=== PATIENT | male | born 1935 | race Caucasian/White ===

== ENCOUNTER → 2023-11-02 10:52 | Outpatient (REF) | payer MEDICARE, SELFPAY | LOC: REG 10:52 | PROVIDERS: ATTENDING PHYSICIAN Specialist; FAMILY PHYSICIAN Family Medicine | DX: R97.20 Elevated prostate specific antigen [PSA] (principal) | CPT/HCPCS: 36415; 84153 ==

== ENCOUNTER → 2023-11-16 01:18 | Outpatient (REF) | payer MEDICARE, SELFPAY | LOC: CLAB 01:18 | PROVIDERS: ATTENDING PHYSICIAN Specialist | DX: R97.20 Elevated prostate specific antigen [PSA] (principal) | CPT/HCPCS: 88305; 88344 ==

== ENCOUNTER → 2024-06-11 12:25 | Outpatient (REF) | payer MEDICARE, SELFPAY | LOC: REG 12:25 | PROVIDERS: ATTENDING PHYSICIAN Specialist; FAMILY PHYSICIAN Nurse Practitioner Acute Care | DX: C61 Malignant neoplasm of prostate (principal) | CPT/HCPCS: 36415; 84153 ==

== ENCOUNTER → 2024-07-02 14:24 | Outpatient (REF) | payer MEDICARE, SELFPAY | LOC: MRI 3T 14:24 | PROVIDERS: ATTENDING PHYSICIAN Physician Assistant; FAMILY PHYSICIAN Family Medicine; REFERRING PHYSICIAN Orthopaedic Surgery | DX: M25.511 Pain in right shoulder (principal) | CPT/HCPCS: 72148; 73221 ==

== ENCOUNTER → 2025-01-02 10:36 | Outpatient (REF) | payer MEDICARE, SELFPAY | LOC: REG 10:36 | PROVIDERS: ATTENDING PHYSICIAN Specialist | DX: C61 Malignant neoplasm of prostate (principal) | CPT/HCPCS: 36415; 84153 ==

== ENCOUNTER 2025-02-13 18:09 | Observation (INO) | payer MEDICARE, SELFPAY ==
[2025-02-13] VITALS (11 sets, daily range): BP systolic 121–162; BP diastolic 72–93; PULSE 56; O2SAT 98; BMI 22.8
[2025-02-13 14:34] LABS: Hematocrit 41.2 % (39.0-52.0); Hemoglobin 14.1 g/dL (13.0-18.0); Mean Corp Hgb Conc. 34.2 g/dL (33.0-37.0); Mean Corpuscular Volume 93.2 fL (80.0-94.0); Nucleated Red Blood Cells % 0 % (-); Platelet Count 202 10^3/uL (130-400); Red Cell Dist. Width 13.5 % (11.5-14.5)
[2025-02-13 14:48] LABS: INR 1.10; PT 14.8 Sec (11.4-14.6)
[2025-02-13 14:49] LABS: APTT 24.7 Sec (23.4-35.0)
[2025-02-13 15:08] LABS: Troponin I < 0.012 ng/ml
--- NOTE | 2025-02-13 15:40 | ED.GENMED ---
History of Present Illness
General
Chief Complaint: Dizziness
Source: patient
Exam Limitations: none
Time Seen by Provider: 02/13/25 15:26
Nursing documentation reviewed up to this point in time: agreed with
History of Present Illness
History of Present Illness:
89 yo male with h/o Afib on Eliquis, HLD, IBS, presents with left neck pain and episodes of dizziness. The onset of neck pain occurred on Tuesday while cleaning and moving items around [place] house. The patient describes the neck pain as initially
localized to a specific spot but has since progressed to a point where he is unable to turn his neck to the left due to pain
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 During this episode, he needed to support himself by holding onto objects. He did not
describe this as a spinning sensation typically associated with vertigo. After this episode, he was able to return to bed and fell asleep.
By next morning, the patient felt better and visited , had a general examination but could not determine the cause of the neck pain or dizziness. The neck pain persisted, and further episodes of feeling 'off' prompted a follow-up visit to last
night. It was then suggested he may need further evaluation of his neck arteries for potential vascular issues contributing to dizziness. There are no reports of recent head injury, changes in vision, chest pain, or respiratory issues.
The patient recalls feeling slightly nauseous this a.m but no vomiting. There is no history of recent abdominal pain, diarrhea, constipation, urinary discomfort, or weakness/numbness in arms or legs. He does report a general feeling of being unwell
and 'not himself.' No recent head trauma
Past History
Past History
ED Past Medical History: Arrthythmia and Hypercholesterolemia
ED Past Surgical History: Orthopedic and Other (hernia repair)
Social History
Tobacco: Non-smoker
Alcohol: Occasional
Drug: None
Personal: Single
Living: with family
Employment: Retired
Family History
Family History: Other (Mother with aortic valve replacement)
Review of Systems
Review of Systems
Allergies reviewed?: Yes
All Other Systems: ROS reviewed and negative except as documented in HPI and ROS
Constitutional: Denies fever
Respiratory: Denies trouble breathing
Cardiac: Denies chest pain
ABD/GI: Reports nausea; Denies abdominal pain, vomiting or diarrhea
: Denies dysuria
Musculoskeletal: Reports neck pain (left side); Denies edema
Skin: Reports no symptoms
Neurological: Reports dizzy; Denies headache, weakness or numbness
Phy Exam
Physical Exam
Physical Exam:
GENERAL: No acute distress. A&Ox3.
CONSTITUTIONAL: Afebrile.
EYES: clear, conjunctivae normal
Neck supple, no carotid bruits
ENMT: moist mucus membranes, Pharynx nl
RESPIRATORY: Regular respirations, nonlabored, lungs clear.
CARDIOVASCULAR: Regular rate and rhythm, no murmurs, no rubs.
GI: Soft, nontender, normal BS
MUSCULOSKELETAL: No spinal bony tenderness. Left side neck pain immediately reproducible with palpation of Soft tissues, aggravated with head rotating to left. Moves with ease. Well perfused.
SKIN: Warm, dry, pink
PSYCH: Normal mood and affect. Well kept, interactive and appropriate
NEUROLOGIC: Awake, alert and oriented. Speech clear. Cranial nerves II through XII intact. Bejasc-ac-gyda intact. No focal neurological deficits.
Scores
NIH Stroke Score
Level of Consciousness: 0 - Alert
LOC Questions: 0-Answers both correctly
LOC Commands: 0-Performs both correctly
Best Horizontal Gaze: 0-Normal
Visual Johnson: 0=Normal, no visual loss
Facial Palsy: 0=Normal, symmetrical
Motor - Right Arm: 0=No drift 10 seconds
Motor - Left Arm: 0=No drift 10 seconds
Motor - Right Le-No drift 5 seconds
Motor - Left Le-No drift 5 seconds
Limb Ataxia: 0-Absent
Sensation: 0-Normal
Best Language: 0-No aphasia
Dysarthria: 0-Normal
Extinction and Inattention: 0-No abnormality
NIH Total Score:: 0
Course
Orders/Labs/Results
Orders:
Orders
02/13/25 13:53
EKG [Electrocardiogram (*1)] Urgent
Reason for Study: Vertigo / Dizzy
EKG- Treatment ONCE
02/13/25 14:26
Complete Blood Count/With Diff Urgent
Glycohemoglobin (HgbA1c) Urgent
PT/INR [Prothrombin Time] Urgent
PTT Urgent
Troponin I Urgent
02/13/25 15:39
CT Head W/o Iv Contrast Urgent
Comment:
Reason For Exam: dizziness
02/13/25 15:46
Comprehensive Metabolic Panel Urgent
02/13/25 16:32
Physical Therapy Consult [Pt Eval And Treat] Urgent
Treatment: Vestibular evaluation
Activity Level: As Tolerated
02/13/25 17:53
Admit/Transfer Patient As Directed
Co-Sign Provider:
Level of Care: Observation services
Assign to:: Telemetry
Physician / Group: [email or web address]
Diagnosis: cva
Reason for Telemetry: CVA/TIA
Date to Stop Telemetry: 02/16/25
Time to Stop Telemetry: 11:00
PRN Pain Medication Management As Directed
May give lesser potent ordered pain med per pt: Yes
preference::
Protocol:: Medication orders for pain may be administered in a
manner that supports deferring to patient preference
when the pt is:
- Requesting an ordered lesser potent pain medication.
Least to most potent pain medications are defined
as: acetaminophen < NSAID < tramadol < opioids
(morphine, oxycodone, hydromorphone).
- Requesting a lesser dose of the same medication IF
ORDERED.
- Requesting a less intrusive route of administration
if both routes are prescribed by the provider (PO <
IV).
02/13/25 17:54
Code Status As Directed
Resuscitation Status: Full Code
02/13/25 20:19
Acetaminophen [Tylenol/Feverall] 650 mg RECTAL Q4HPRN PRN
Acetaminophen [Tylenol] 650 mg PO Q4HPRN PRN
Aspirin Chewable [Low Strength Aspirin] 81 mg PO DAILY
Atorvastatin [Lipitor] 40 mg PO QPM
02/13/25 20:19
Case Management Consult ONCE
Case Management Consult: Discharge Planning
Comment: stroke/tia
DIETARY IP CONSULT Routine
Reason for Consult: stroke/TIA
NEUROLOGY CONSULT Urgent
Consulting Provider: Rodriguez Ramey
Was physician already notified: Yes
Client Server Developer Urgent
MA [place] Routine
Comment:
Reason For Exam: stroke/TIA
Recent pill cam endoscopy?: No
MA Neck With Contrast Routine
Comment:
Reason For Exam: stroke/TIA
Recent pill cam endoscopy?: No
MR Brain Without Contrast Routine
Comment:
Reason For Exam: stroke/TIA
Recent pill cam endoscopy?: No
Activity As Directed
Activity Level: As Tolerated
NIH Stroke Scale As Directed
Directions: Per protocol
Comment: every shift and with any change in condition or mental status
Neurological Checks As Directed
Frequency: q4h
Additional Instructions:: q4h x 24h upon admission to the floor, then qshift & with any change in condition
and mental status
Patient Education As Directed
Type: Stroke education packet
Comment: provide to patient and family
Pneumatic Compression Sleeves As Directed
Type: Thigh high
Vital Signs As Directed
Frequency: Per unit guidelines
Ot Eval And Treat Routine
Pt Eval And Treat Routine
Activity Level: As Tolerated
Speech Therapy Eval & Treat Routine
DX Deep Vein Thrombosis Video Routine
02/14/25 06:00
Cardiovascular Evaluation IN AM
02/16/25 11:00
DC Protocol for Telemetry ONCE
Abnormal Lab Results
02/13/25 02/13/25
14:26 15:46
RBC 4.42 L 10^6/uL
(4.70-6.10)
MCH 31.9 H pg
(27.0-31.0)
Absolute Monos (auto) 0.8 H 10^3/uL
(0.1-0.6)
Neutrophils % 38.0 L %
(42.2-75.2)
Monocytes % 16.8 H %
(1.7-9.3)
PT 14.8 H Sec
(11.4-14.6)
Carbon Dioxide 32 H mmol/L
(22-30)
02/13/25 14:26
02/13/25 15:46
Vital Signs
Initial and Last Documented VS:
Initial Vital Signs
Temp Pulse Resp BP Pulse Ox
98.5 F 73 16 162/93 99
02/13/25 13:56 02/13/25 13:56 02/13/25 13:56 02/13/25 13:56 02/13/25 13:56
Last Documented Vital Signs
Temp Pulse Resp BP Pulse Ox
98.0 F 56 16 128/72 99
02/13/25 23:07 02/13/25 23:07 02/13/25 23:07 02/13/25 23:07 02/13/25 23:07
MDM/Problems Addressed
Differential Diagnosis Includes:
The Differential Diagnosis includes, in no particular order and is not limited to:
1. Cervical spondylosis
2. Carotid artery stenosis
3. Benign paroxysmal positional vertigo
4. Vestibular neuronitis
5. Labyrinthitis
6. Stroke or transient ischemic attack
7. Medication side effects (e.g., beta-blockers)
8. Dehydration
9. Orthostatic hypotension
10. Intracranial hemorrhage or other central nervous system pathologies
MDM/Problems Addressed:
89 yo male with h/o Afib on Eliquis, HLD, IBS, presents with left neck pain and episodes of dizziness. The onset of neck pain occurred on Tuesday while cleaning and moving items around a beach house. The patient describes the neck pain as initially
localized to a specific spot but has since progressed to a point where he is unable to turn his neck to the left due to pain
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 During this episode, he needed to support himself by holding onto objects. He did not
describe this as a spinning sensation typically associated with vertigo. After this episode, he was able to return to bed and fell asleep.
By next morning, the patient felt better and visited , had a general examination but could not determine the cause of the neck pain or dizziness. The neck pain persisted, and further episodes of feeling 'off' prompted a follow-up visit to last
night. It was then suggested he may need further evaluation of his neck arteries for potential vascular issues contributing to dizziness. There are no reports of recent head injury, changes in vision, chest pain, or respiratory issues.
The patient recalls feeling slightly nauseous this a.m but no vomiting. There is no history of recent abdominal pain, diarrhea, constipation, urinary discomfort, or weakness/numbness in arms or legs. He does report a general feeling of being unwell
and 'not himself.' No recent head trauma
EKG and SR
Plan:
- Order a computed tomography scan of the head to rule out intracranial bleeding or other abnormalities.
- Perform basic blood work to assess overall health status.
- Arrange for physical therapy consultation to evaluate and manage possible benign positional vertigo.
- The healthcare team will determine further treatment and observation based on computed tomography scan results.
CBC, CMP with no clinically significant abnormality.
Troponin WNL
4:30 PM:
Head CT showing nothing acute
Awaiting physical therapy vestibular evaluation
5:30 PM:
PT eval negative for BPPV, no nystagmus, ambulating with steady gait
Plan: Admit: MRI, neuro evaluation to rule out posterior stroke
Pt ok with plan
Hospitalist notified of admission
Chronic conditions affecting care: HTN
*Pulse Oximetry
SaO2: 97
Oxygen Mode of Delivery: Room air
Patient hypoxic: not evaluated
*EKG
EKG Intrepretation Date: 02/13/25
Interpretation: normal
Heart Rate: 66
Rate: normal
Rhythm: sinus
Burdett: normal axis
Interval: normal interval
QRS Pattern: normal QRS
Ischemia: no ischemia
*Critical Care Note
Total Time (30-74mins, 75-104mins- exclusive of procedures): Not Applicable
ED Attending Note
-
Portions of this chart may have been created with voice recognition software.� Occasional wrong word or��sound alike� substitutions may have occurred due to the inherent limitations of voice recognition software.
Discharge Plan
Departure
Patient Disposition: Admit
Date of Disposition: 02/13/25
Time of Disposition: 17:35
Admit to: Med/Surg
Presentation/result/management discussed w/ accepting MD/DO: Hospitalist
Condition: Fair
Discharge Problem:
Dizziness
Interventions
Interventions:
*Risk Screen - Suicide Last Done: 02/13/25 13:56
*General Assessment Last Done: 02/13/25 13:56
*Neglect/Abuse Screening Last Done: 02/13/25 13:56
*ED- Fall Risk Assessment Last Done: 02/13/25 13:56
*ED COVID-19 Vaccine History Last Done: 02/13/25 20:49
*Nursing Disposition Last Done: 02/13/25 20:15
ED- Neurological Assessment Last Done: 02/13/25 14:30
ED- Cardiac Assessment Last Done: 02/13/25 14:30
ED Swallowing Screen Last Done: 02/13/25 17:00
Discharge Date and Time
Discharge Date/Time: 02/13/25 20:15
[2025-02-13 16:13] LABS: ALT (SGPT) 18 U/L (0-50); AST (SGOT) 22 U/L (17-59); Albumin 3.9 g/dl (3.5-5.0); Alkaline Phosphatase 56 U/L (38-126); Blood Urea Nitrogen 16 mg/dl (9-20); Calcium 9.2 mg/dl (8.4-10.2); Carbon Dioxide 32 mmol/L (22-30); Chloride 106 mmol/L (98-107); Glucose 95 mg/dl (70-99); Potassium 3.9 mmol/L (3.5-5.1); Sodium 138 mmol/L (135-145); Total Protein 6.3 g/dl (6.3-8.2); eGFR > 60.00
--- NOTE | 2025-02-13 17:35 | HPS.HSE ---
Family Physician
-
Family Physician: Petrona Conrad MD
Chief Complaint
-
neck pain/dizzy
History of Present Illness
89 yo male with h/o Afib on Eliquis, HLD, IBS, presents with left neck pain and episodes of dizziness. The onset of neck pain occurred on Tuesday while cleaning and moving items around a beach house. The patient describes the neck pain as initially
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
getting out of bed to use the bathroom. denied any spinning sensation. he went to urgent care following day and he was evaluated by PCP today who recommended Hospital evaluation. Patient denied any headache, dizzy, fever, chills, chest pain, short
of breath. Patient denied any abdominal pain, nausea, vomiting or diarrhea. Patient denied dysuria hematuria.
Head CT with no acute findings.Admitting for further management
Medical History
Past Medical History
Past Medical History: Reports Other
Additional Past Medical History:
Paroxysmal A-fib
Insomnia anxiety
Hyperlipidemia
osteoarthritis
Prostate cancer
Zcaen-Zelxozjyz-Wzdns syndrome
Hernia
Anxiety
Hemangioma of the liver
Cerebral hemorrhage
IBS
Vertigo
Liver mass
Past Surgical History: Reports Other
Additional Past Surgical History:
Left inguinal hernia repair
Toe surgery
Liver mass removed
Cardiac ablation
Cataract surgery
Social History
Tobacco: Non-smoker
Alcohol: Occasional
Drug: None
Personal: Single
Living: With Roomate
Family History
Family History: Not pertinent
Allergies / Home Medications
Allergies reflects when Allergies were last updated in [facility].
Home Medications with original date entered in [facility]
Allergy/Medication List:
Allergies
Allergy/AdvReac Type Severity Reaction Status Date / Time
No Known Allergies Allergy Verified 07/05/22 06:22
Home Medications
atorvastatin 10 mg tablet 10 mg PO HS 10/20/13
meclizine 25 mg tablet 25 mg PO Q8HPRN PRN nausea or vertigo #21 tabs 12/07/13
acyclovir 200 mg capsule 200 mg PO PRN PRN herpes outbreak 03/19/21
apixaban 5 mg tablet (Eliquis) 5 mg PO BID 03/19/21
metoprolol succinate 25 mg tablet,extended release 24 hr (Toprol XL) 25 mg PO DAILY 03/19/21
omega 5-ulh-ujy-fish oil 900 mg-1,400 mg capsule,delayed release (Fish Oil) 1 cap PO DAILY 03/19/21
acetaminophen 300 mg-codeine 30 mg tablet 1 tab PO Q6H PRN PAIN 06/30/22
calcium 500 mg tablet 500 mg PO DAILY 06/30/22
cholecalciferol (vitamin D3) 25 mcg (1,000 unit) tablet (Vitamin D3) 25 mcg PO DAILY 06/30/22
coenzyme W03-tncnhjs E 100 mg-100 unit capsule 1 cap PO DAILY 06/30/22
multivitamin 1 tab PO DAILY 06/30/22
vit C 250 mg-vit E 90 mg-zinc 40 mg-copper 1 fu-ivdoqi-yrrjqb capsule (PreserVision AREDS-2) 1 tab PO BID 06/30/22
zinc 50 mg capsule 50 mg PO DAILY 06/30/22
oxycodone 5 mg tablet 5 - 10 mg (1 - 2 x 5 mg) PO Q4HPRN PRN moderate to severe pain #10 tabs 07/05/22
Review of Systems
-
Constitutional: Reports No Symptoms
EENT: Reports No Symptoms
Respiratory: Reports No Symptoms
Cardiac: Reports No Symptoms
Abdomen/GI: Reports No Symptoms
: Reports No Symptoms
Musculoskeletal: Reports No Symptoms
Skin: Reports No Symptoms
Neurological: Reports Other (Off balance)
Endocrine: Reports No Symptoms
Hematologic/Lymphatic: Reports No Symptoms
Psych: Reports No Symptoms
Physical Exam
Vital Signs
Vital Signs
Temp Pulse Resp BP Pulse Ox
98.5 F 53 20 148/82 98
02/13/25 13:56 02/13/25 17:00 02/13/25 17:00 02/13/25 17:00 02/13/25 17:00
Physical Exam
General: Well Developed, Well Nourished and No Apparent Distress
HEENT: NormoCephalic, Moist mucous membranes and Atraumatic
Respiratory: Clear
Cardiac: S1/S2 and Regular Rhythm; No Murmur or Rub
GI: Soft, Non Tender, Non Distended and Normal Bowel Sounds; No Organomegaly
Rectal: Deferred by Provider
Musculoskeletal: No Clubbing, No Cyanosis and No Edema
Skin: No Rash
Neuro: AO x 3 and Nonfocal/grossly intact
Psych: Calm
Laboratory Results
-
02/13/25 14:26
02/13/25 15:46
Laboratory Results
PT 14.8 Sec (11.4-14.6) H 02/13/25 14:26
INR 1.10 02/13/25 14:26
APTT 24.7 Sec (23.4-35.0) 02/13/25 14:26
Total Bilirubin 0.6 mg/dl (0.2-1.3) 02/13/25 15:46
AST 22 U/L (17-59) 02/13/25 15:46
ALT 18 U/L (0-50) 02/13/25 15:46
Alkaline Phosphatase 56 U/L (38-126) 02/13/25 15:46
Troponin I < 0.012 ng/ml 02/13/25 14:26
Data Reviewed
-
CT Scan: Report Reviewed by me
Lab Data: Labs Reviewed by me
Impression/Plan
-
#Dizzy/imbalance concern for CVA
- Head CT negative for acute finding
- PT eval negative for BPPV
- Obtain MRI
- Aspirin, statin continued
- Obtain A1c, lipid profile
- PT/OT consulted
- Neurology consulted
#Paroxysmal A-fib
- Eliquis and metoprolol continued
-EKg with NSR
#DVT prophylaxis on Eliquis
#CODE STATUS
- Full code
--- NOTE | 2025-02-13 18:27 | W.PN.UPDATE ---
Update Note
Progress Note Update
This note serves as an addendum to the H&P by signal manager JERI Emily HSU
HPI
89M HX Afib on Eliquis, HLD, IBS seen at ER
- pw left neck pain and episodes of dizziness
- onset of neck pain occurred on Tuesday while cleaning and moving items around a beach house.
- neck pain has since progressed to a point where he is unable to turn his neck to the left due to pain.
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
- denied any spinning sensation
- seen at [facility] he was evaluated by PCP today who recommended Hospital evaluation.
ROS
- denied any headache, dizzy, fever, chills, chest pain, short of breath.
- denied any abdominal pain, nausea, vomiting or diarrhea.
- denied dysuria hematuria.
Head CT with no acute findings
Vital Signs
Temp Pulse Resp BP Pulse Ox
98.5 F 53 20 148/82 98
02/13/25 13:56 02/13/25 17:00 02/13/25 17:00 02/13/25 17:00 02/13/25 17:00
PE
Gen: NAD
HEENT: Nl speech, No nystagmus
Neck: no cervical tenderness
Lungs: CTA
Cor: RRR S1 S2
RIBBON TIER: grossly non focal exam
MS: no edema
Per ER NIH Total Score:: 0
Abnormal Lab Results
02/13/25 02/13/25
14:26 15:46
RBC 4.42 L
MCH 31.9 H
Absolute Monos (auto) 0.8 H
Neutrophils % 38.0 L
Monocytes % 16.8 H
PT 14.8 H
Carbon Dioxide 32 H
EKG
NORMAL SINUS RHYTHM
CONSIDER LATERAL INFARCT (CITED ON OR BEFORE 20-MAY-2005)
ABNORMAL ECG
WHEN COMPARED WITH ECG OF 20-MAR-2021 05:42,
QUESTIONABLE CHANGE IN INITIAL FORCES OF ANTERIOR LEADS
QT HAS SHORTENED
Confirmed by MD RODERICK, JUAN M Bang ([id number]) on 02/13/2025 2:22:48 PM
HCT
No acute intracranial abnormality noted.
Last hospitalist admission:
ASSESSMENT & PLAN
Pending Rx reconciliation
Unilateral Lt Neck pain
- Cervical neuralgia or radiculopathy or MS spasm
- suspect MS origin
- add muscle relaxant PRN Flexeril
- await Neuro evaluation
Dizzy/imbalance evaluating for for CVA
- Head CT negative for acute finding
- PT eval negative for BPPV
- Obtain Brain MRI and MRA of H & N
- Aspirin, statin continued
- Obtain A1c, lipid profile
- PT/OT consulted
- Neurology consulted
In NSR
HX Paroxysmal AF
- Eliquis and metoprolol continued
DVT prophylaxis on Eliquis
Full code
OBS TLM
[2025-02-13] MEDS: FLEXERIL 5 MG PO (20:46)
[2025-02-13] MEDS: ELIQUIS 5 MG PO (20:46)
[2025-02-13] MEDS: LOW STRENGTH ASPIRIN 81 MG PO (20:46)
[2025-02-13] MEDS: LIPITOR 40 MG PO (20:46)
[2025-02-13] MEDS: METAMUCIL, KONSYL 1 PACKET PO (20:46)
[2025-02-14] VITALS (7 sets, daily range): BP systolic 114–149; BP diastolic 71–88; PULSE 60–72; O2SAT 98
[2025-02-14 07:59] LABS: HDL Cholesterol 46 mg/dl; LDL Cholesterol, Calculated 76 mg/dl; Very Low Density Lipoprotein 26 mg/dl (0-30)
[2025-02-14] MEDS: LOW STRENGTH ASPIRIN 81 MG PO (08:26)
[2025-02-14] MEDS: ELIQUIS 5 MG PO ×2 (08:26→20:06)
[2025-02-14] MEDS: TOPROL XL PO (08:26)
--- NOTE | 2025-02-14 09:16 | CON.NEURO4 ---
Addendum entered and electronically signed by Rodriguez Ramey MD 02/14/25 12:23:
Studies reviewed.
I have personally examined the patient. I reviewed and agree with the [employer] ACCESS DEVELOPER's Note.
My addenda:
Awake, alert, interactive. No acute distress.
Speech intact.
Follows 2-step requests w/o difficulty. No tremor.
Extra-ocular movements grossly intact.
Facial movements full and symmetric. Hearing intact to normal conversational volume.
Normal UE movements bilaterally.
Neck: full ROM.
Chest: no dyspnea
Heart: no JVD
Ext: (-) Clubbing, (-) Cyanosis, (-) Edema
IMPRESSIONS/RECOMMENDATIONS:
Abrupt onset of neck pain on the left and dizziness. Differential diagnosis includes orthostatic hypotension, vertebral artery dissection although this is unlikely based on the intermittent nature of the patient's neck discomfort as well as absence
of centrally associated findings on examination. There is the possibility of stroke although this is less likely
Check CT angiogram of head and neck to ensure no dissection
Check orthostatic blood pressures
Continue apixaban
Would avoid the addition of antiplatelet agents to the patient's routine apixaban from a neurological perspective
Physical therapy evaluations and treatment
Increase atorvastatin from 20 to 40 mg due to LDL greater than 70
D/W patient / family / nursing
All questions answered.
Will continue to follow pending results.
Original Note:
Documented by User: Ute Mueller NP 02/14/25 11:48
Consultation - Neurology 4
-
CONSULTING PHYSICIAN: Rodriguez Ramey MD
REFERRING PHYSICIAN: Hospitalists/DEVIN Rosa
DICTATED BY: DEVIN Guerrero
DATE/TIME OF REQUEST: 02/13/25
DATE/TIME OF CONSULTATION: 02/14/25
Reason for Consultation: Dizziness, neck pain
History of Present Illness:
This is an 89-year-old right-handed male who has presented to the hospital on 02/13/25 with report left neck pain and dizziness. Patient reports cleaning and moving boxes 6 days ago, that night he notes he developed some left neck discomfort. This
has persisted, but it only painful when he turns his head to the left. Then three days ago on 02/11/25 at 0300, he got out of bed to use the bathroom and reports being unsteady on his feet. He had to reach for furniture to make it back to bed. The
following day (02/12/25), he notes that his left neck pain persisted and he continued to have intermittent times of feeling 'unsteady' lasting about 2-5 minutes. He went to urgent care for evaluation on 02/13/25, who referred him to the ER.
Today (02/14/25), patient notes that his unsteadiness is still occurring intermittently when he is up doing things. His left neck discomfort still occurs when he turns his head to the left. He denies any vision changes, headache, speech/swallowing
difficulty, numbness, and weakness. 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 He is taking apixaban for Afib and denies missing any doses. He reports a history of dizziness in 2013 that felt different that his
current dizziness. He was working out and then proceeded not to feel right and was found to have a small right parietal SAH, he was transferred to [facility] at that time, he denies needing surgical intervention. Later that
year, he presented to the ER with dizziness and was found to have BPPV, he does not recall this.
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
Surgical History: Cardiac ablation, mass removed from liver, b/l inguinal hernia repair, b/l cataract removal
Family History: Reviewed and noncontributory.
Social History: 2 glasses of wine daily. Denies tobacco and illicit drug use.
Allergies: No known allergies.
Home Medications: See below.
Review of Symptoms:
Patient denies any fever, headache, chest pain, shortness of breath, GI or symptoms.
�Per the HPI.�All systems are reviewed negative except above.
Physical Exam:
The patient is afebrile, abdomen is nondistended, breathing is unlabored, skin is warm and dry, no edema.
NIH Stroke Scale:
I performed the NIH stroke scale on the patient on 02/14/25 at 0920. The patient scored 0 points on the NIH stroke scale assessment, which were assigned as follows: See below.
Neurologic Examination:
The patient is awake, alert and oriented x 3. He is able to follow commands and answer questions appropriately. There is no aphasia or dysarthria. On cranial nerve assessment, pupils are pinpoint bilateral, round and reactive to light and
accommodation. Visual johnson are full. Extraocular movements are intact. No nystagmus. Facial sensations are intact and bilaterally symmetrical, there is no facial asymmetry. Hearing is reduced on the left to finger rub. Tongue palate and uvula are
midline. Sternocleidomastoid strengths are full bilaterally. Motor strengths are 5/5 bilateral upper and lower extremities on medical research [place] scale. There is no drift or involuntary movement noted. Deep tendon reflexes are 2+ bilateral
upper, 3+ bilateral patellar, and 2+ bilateral Achilles extremities and Babinski is absent bilaterally. There was no extinction noted on double simultaneous stimulation. Coordination is intact by finger to nose bilaterally. Romberg mildly positive.
+Head impulse test bilaterally.
Lab Results: See below.
Neuro Imaging:
1. CT Head 02/13/25: No acute intracranial abnormality noted. There is a minimal hyperdensity along the right paramedian parietal lobe (series 201 image 18), unchanged from prior likely sequela of prior hemorrhage.
2. CTA head/neck 02/14/25: No significant stenosis in the arterial structures of the head/neck. No acute CT findings in the head or neck. Moderate cerebral atrophy. 1.2 cm region of tree-in-bud opacities in the posterior right upper lobe. These are
related to small airway disease.
Differentials for the patient's presentation include:
1. Orthostasis and BPPV likely contributing to patient's symptoms.
2. Small stroke possible but less likely.
3. CTA head/neck negative for structural intracranial vessel abnormality.
Patient has the following risk factors for their symptoms: HTN, HLD, Afib, lifting boxes, age
IV Tenecteplase/IAT candidacy: Not a candidate due to outside of time window.
Recommendations:
-MRI Brain pending.
-Continue home apixaban.
-PT evaluations.
-LDL goal <70. LDL is 76. Home atorvastatin increased from 20mg to 40mg daily.
-Goal normoglycemia, hbA1c is 5.6.
-NIHSS and neurological checks per unit guidelines.
-Provide patient with a stroke education packet.
Discussed patient care with: Dr. Ramey, the patient
Vital Signs and Labs
-
Vital Signs and Labs:
Vital Signs
Temp Pulse Resp BP Pulse Ox
97.9 F 58 16 132/78 98
02/14/25 08:00 02/14/25 08:00 02/14/25 08:00 02/14/25 08:00 02/14/25 08:00
Lab Results
02/13/25 14:26
02/13/25 15:46
PT 14.8 Sec (11.4-14.6) H 02/13/25 14:26
INR 1.10 02/13/25 14:26
APTT 24.7 Sec (23.4-35.0) 02/13/25 14:26
Sodium 138 mmol/L (135-145) 02/13/25 15:46
Potassium 3.9 mmol/L (3.5-5.1) 02/13/25 15:46
BUN 16 mg/dl (9-20) 02/13/25 15:46
Glucose 95 mg/dl (70-99) 02/13/25 15:46
Calcium 9.2 mg/dl (8.4-10.2) 02/13/25 15:46
LDL Cholesterol, Calc 76 mg/dl 02/14/25 06:44
Medications
-
Active Medications
Generic Name Dose Route Start Last Admin
Trade Name Freq PRN Reason Stop Dose Admin
Acetaminophen 650 mg 02/13/25 20:19
Acetaminophen 650 Mg Rectal Suppository RECTAL 03/13/25 20:18
Q4HPRN PRN
DUDLEY, mild pain, or temp >100.4F
Acetaminophen 650 mg 02/13/25 20:19
Acetaminophen 325 Mg Tablet PO 03/13/25 20:18
Q4HPRN PRN
DUDLEY, mild pain, or temp >100.4F
Apixaban 5 mg 02/13/25 20:19 02/14/25 08:26
Apixaban (Eliquis) 5 Mg Tablet PO 03/13/25 20:18 5 mg
BID JACKELYN Administration
Aspirin 81 mg 02/13/25 20:19 02/14/25 08:26
Aspirin 81 Mg Chewable Tablet PO 03/13/25 20:18 81 mg
DAILY JACKELYN Administration
Atorvastatin Calcium 40 mg 02/13/25 20:19 02/13/25 20:46
Atorvastatin (Lipitor) 40 Mg Tablet PO 03/13/25 20:18 40 mg
QPM JACKELYN Administration
Cyclobenzaprine HCl 5 mg 02/13/25 20:19 02/13/25 20:46
Cyclobenzaprine 10 Mg Tablet PO 03/13/25 20:18 5 mg
Q8HPRN PRN Administration
neck pain
Metoprolol Succinate 25 mg 02/14/25 08:00 02/14/25 08:26
Metoprolol 25 Mg Extended Release Tablet PO 03/14/25 07:59 Not Given
DAILY JACKELYN
Psyllium Hydrophilic Mucilloid 1 packet 02/13/25 21:00 02/13/25 20:46
Psyllium Packet PO 03/13/25 20:59 1 packet
QPM JACKELYN Administration
Sodium Chloride 0 flush 02/13/25 21:00
Sodium Chloride 0.9% (Flush) Syringe IV 03/13/25 20:59
PER PROTOCOL JACKELYN
Home Medications
�Medication �Instructions �Recorded
CoQ-10 50 mg PO DAILY 02/13/25
Fish Oil 1 cap PO DAILY 02/13/25
Metamucil 1 tsp PO QPM 02/13/25
acetaminophen 500 mg tablet 1,000 mg PO DAILYPRN PRN mild pain 02/13/25
(Tylenol Extra Strength)
apixaban 5 mg tablet (Eliquis) 5 mg PO BID 02/13/25
atorvastatin 20 mg tablet 20 mg PO HS 02/13/25
metoprolol succinate 25 mg 25 mg PO DAILY 02/13/25
tablet,extended release 24 hr
vit C 250 mg-vit E 90 mg-zinc 40 1 cap PO BID 02/13/25
mg-copper 1 [id number]
capsule (PreserVision AREDS-2)
zinc 1 tab PO DAILY 02/13/25
NIH Stroke Score
Subsequent NIH Scale
Date of Subsequent NIH Scale: 02/14/25
Time of Subsequent NIH Scale: 09:20
NIH Stroke Score
Level of Consciousness: 0 - Alert
LOC Questions: 0-Answers both correctly
LOC Commands: 0-Performs both correctly
Best Horizontal Gaze: 0-Normal
Visual Johnson: 0=Normal, no visual loss
Facial Palsy: 0=Normal, symmetrical
Motor - Right Arm: 0=No drift 10 seconds
Motor - Left Arm: 0=No drift 10 seconds
Motor - Right Le-No drift 5 seconds
Motor - Left Le-No drift 5 seconds
Limb Ataxia: 0-Absent
Sensation: 0-Normal
Best Language: 0-No aphasia
Dysarthria: 0-Normal
Extinction and Inattention: 0-No abnormality
NIH Total Score:: 0
Modified Mclean (mRS) Score
Modified Mclean Scale (mRS): No significant disability. Able to carry out usual activities.
Score: 1

Documented by User: Rodriguez Ramey MD 02/14/25 12:14
NIH Stroke Score
NIH Stroke Score
NIH Total Score:: 0
Modified Buddy (mRS) Score
Score: 1
[2025-02-14 10:04] LABS: Glycohemoglobin (HgbA1c) 5.6 % (4.0-5.6)
[2025-02-14 11:18] LABS: Folate 14.5 ng/ml (2.76-20); Vitamin B12 350 pg/ml (239-931)
--- NOTE | 2025-02-14 11:20 | W.PN.HOSP.TC ---
Today's Communication/Plan
-
awaiting CTA anD MRI
follow up formal Neurology consult
follow up PT Eval
Assessment / Plan
Assessment / Plan
HCT
No acute intracranial abnormality noted.
ASSESSMENT & PLAN
Unilateral Lt Neck pain
- Cervical neuralgia or radiculopathy or MS spasm
- suspect MS origin
- pain largely resolved this morning
Dizzy/imbalance evaluating for for CVA
- Head CT negative for acute finding
- PT eval negative for BPPV
- Obtain Brain MRI, CTA Head/Neck pending
- Aspirin, statin continued
- Obtain A1c, lipid profile
- PT/OT consulted
- Neurology consulted
In NSR
HX Paroxysmal AF
- Eliquis and metoprolol continued
DVT prophylaxis on Eliquis
Full code
OBS TLM
Anticipated Discharge: Within 24 hours
Subjective/Interval History
-
Date of Service: February 14, 2025
he remains dizzy when looking to right side
he was also dizzy when standing up earlier
Objective Data
-
Vital Signs:
Vital Signs
Temp Pulse Resp BP Pulse Ox
97.9 F 58 16 132/78 98
02/14/25 08:00 02/14/25 08:00 02/14/25 08:00 02/14/25 08:00 02/14/25 08:00
I&O
02/13/25 02/14/25 02/15/25
06:59 06:59 06:59
Intake Total 480 / 480
Output Total 300 / 300
Balance 180 / 180
Review of Systems
-
History Source: Patient
All other systems: Reviewed and negative
Physical Exam
-
General: No Apparent Distress
HEENT: PERRLA and Other (no nystagmus )
Respiratory: Clear to Auscultation; Negative Wheezes
Cardiac: Regular Rhythm and S1/S2
GI: Soft and Nontender
Musculoskeletal: No Edema
Skin: Warm and Dry; Negative Rash
Psych: Calm
Data Reviewed
-
Diagnostic Radiology: Report Reviewed by me
Labs: Labs Reviewed by me
--- NOTE | 2025-02-14 12:23 | PTOTSP ---
pt currently requires supervision to no assistance to complete simple ADLs, functional transfers, ambulation. pt demonstrates no overt deficits, no acute OT needs. will sign off.
--- NOTE | 2025-02-14 16:20 | CM ---
Alert awake oriented patient who lives with his friend Brad who lives in a 2 story home with 2 step to enter and 8 steps to bed and bathroom. He is independent in driving and in all activities of daily living.He was offered VN he declined need.No
adaptive devices.WARNER letter reviewed signed on chart.
No VN hx / No SNF history
Pharmacy [facility]
PCP DR Conrad
PLAN Home Declined VN
[2025-02-14] MEDS: METAMUCIL, KONSYL 1 PACKET PO (17:47)
[2025-02-14] MEDS: LIDOCAINE 4% PATCH 1 PATCH TOPICAL (17:47)
[2025-02-14] MEDS: LIPITOR 40 MG PO (17:47)
[2025-02-14] MEDS: REMOVE LIDOCAINE PATCH 1 PATCH REMOVE (20:02)
[2025-02-14] MEDS: TYLENOL 650 MG PO (20:06)
[2025-02-15 03:08] VITALS: BP 133/76
--- NOTE | 2025-02-15 07:00 | W.PN.HOSP.TC ---
Today's Communication/Plan
-
discharge
Assessment / Plan
Assessment / Plan
Physical Exam
General: No acute distress, appears comfortable at this time
HEENT: NormoCephalic, Moist mucous membranes and Atraumatic
Respiratory: Clear
Cardiac: S1/S2 and Regular Rhythm; No Murmur or Rub
GI: Soft, Non Tender, Non Distended and Normal Bowel Sounds; No Organomegaly
Musculoskeletal: No Clubbing, No Cyanosis and No Edema, left sided neck tenderness/stiffness
Skin: No Rash
Neuro: AOx3 Conversant coherent
Psych: Calm
89M afib Eliquis HLD IBS p/w neck pain likely musculoskeletal etiology and associate dizziness symptomatic orthostatic hypotension.
Unilateral Lt Neck pain
- Cervical neuralgia or radiculopathy or MS spasm
- Likely musculoskeletal origin
- pain largely improved
-cont bengay-like cream
Dizzy/imbalance evaluated for possible CVA, ruled out
symptomatic orthostatic hypotension
- Head CT negative for acute finding
- PT eval negative for BPPV
- Brain MRI, CTA Head/Neck neg for acute abn's
- Aspirin, statin continued
- A1c 5.6 non-diabetic, lipid profile reviewed
- PT/OT eval appreciated outpt therapy recommended (scripts provided to facilitate)
- Neurology consult appreciated home atorvastatin increased to 40 mg
In NSR
HX Paroxysmal AF
- Eliquis and metoprolol continued
DVT prophylaxis on Eliquis
Full code
Medically stable for discharge home with outpatient follow up recommendations.
Total Time Preparing Discharge ___40____ minutes including examination of the patient, summary of the hospital stay, instructions for continuing care to all relevant caregivers; and preparation of discharge records, prescriptions, and referral
forms if necessary.
Anticipated Discharge: Today
Subjective/Interval History
-
Date of Service: February 15, 2025
neck pain continues to improve. Dizziness on standing remains present but improving. Ambulatory without need for assist device.
Objective Data
-
Vital Signs:
Vital Signs
Temp Pulse Resp BP Pulse Ox
98.0 F 59 16 133/76 99
02/15/25 03:08 02/15/25 03:08 02/15/25 03:08 02/15/25 03:08 02/15/25 03:08
I&O
02/14/25 02/15/25 02/16/25
06:59 06:59 06:59
Intake Total 480 / 480 660 / 660
Output Total 300 / 300 1200 / 1200
Balance 180 / 180 -540 / -540
[2025-02-15 07:30] VITALS: BP 131/97; BP 156/92; BP 167/94; PULSE 71; PULSE 84; PULSE 86
[2025-02-15] MEDS: ELIQUIS 5 MG PO (08:41)
[2025-02-15] MEDS: TOPROL XL 25 MG PO (08:41)
[2025-02-15] MEDS: LIDOCAINE 4% PATCH TOPICAL (08:43)
[2025-02-15 11:18] VITALS: BP 150/84
[2025-02-15] MEDS: BenGay-Like 1 APPLIC TOPICAL (14:20)
[2025-02-15 15:47] VITALS: BP 139/87
--- NOTE | 2025-02-15 16:00 | W.DCSUMMARY ---
Discharge Summary
Discharge Data
Date of Admission: 02/13/25
Date of Discharge: 02/15/25
-
Pending Results: No
Hospital Course
89M afib Alejandraquoli HLD IBS p/w neck pain likely musculoskeletal etiology and associate dizziness symptomatic orthostatic hypotension. Unilateral Lt Neck pain. Cervical neuralgia or radiculopathy or MS spasm, likely musculoskeletal origin. Pain
largely improved with conservative measures, bengay-like cream. Dizzy/imbalance evaluated for possible CVA, ruled out, symptomatic orthostatic hypotension. Head CT negative for acute finding. PT eval negative for BPPV. Brain MRI, CTA Head/Neck
neg for acute abn's. Aspirin, statin continued. A1c 5.6 non-diabetic, lipid profile reviewed. PT/OT eval appreciated outpt therapy recommended (scripts provided to facilitate). Neurology consult appreciated home atorvastatin increased to 40 mg.
Medically stable, patient was discharged home with outpatient follow up recommendations.
Discharge Plan
-
Patient Disposition: Home (Routine Discharge)
Discharge Diagnosis/Procedures: Left Sided Neck Pain likely musculoskeletal etiology
Symptomatic Orthostatic Hypotension
Condition: Fair
Diet: Regular
Activity: As tolerated
Driving Restrictions: As prior to admission
Bathing Restrictions: None
Other Services: PT and OT
Activity Restrictions/Additional Instructions:
Follow up with primary care provider in 1 week of discharge, orthopedic assessment specialist in 2-4 weeks of discharge, and neurology in 1 month of discharge.
Keep a daily log of your pressures at home to review with your primary care provider, in follow up, for further blood pressure evaluation/management.
Atorvastatin has been increased to 40 mg as per neurology recommendations for greater stroke risk reduction.
Bengay-like cream prescribed as needed for neck pain, likely musculoskeletal etiology. This medication is available over the counter.
To minimize/reduce symptoms of orthostatic hypotension, it is recommended that you attempt to stay hydrated with at lease 2L of water a day.
Please take medications as prescribed/recommended and follow up with primary care provider and/or other healthcare provider involved in your care for refills and/or further adjustment to your medication regimen as necessary.
Instructions: Orthostatic hypotension, Using an abdominal binder
Referrals:
Rodriguez Ramey MD [Active, Neurology] - in one month
Christiano Niño MD [Active, Orthopedics] - in two to four weeks
Petrona Conrad MD [Family Provider, Family Practice] - in one week
Prescriptions:
New
Analgesic Furlong (m.salic-menth) 15-10 % Cream
1 applic topical QID PRN (Reason: muscle pain) Qty: 85 0RF
atorvastatin 40 mg Tablet
40 mg PO QPM Qty: 30 0RF
Continued
acetaminophen [Tylenol Extra Strength] 500 mg Tablet
1,000 mg PO DAILYPRN PRN (Reason: mild pain)
metoprolol succinate 25 mg Tablet Extended Release 24 Hr
25 mg PO DAILY
Eliquis 5 mg Tablet
5 mg PO BID
PreserVision AREDS-2 250-90-40-1 mg Capsule
1 cap PO BID
CoQ-10 capsule
50 mg PO DAILY
Fish Oil
1 cap PO DAILY
Metamucil
1 tsp PO QPM
Patient Comments:
02/13/2025, 1 heaping teaspoon per pt.
zinc
1 tab PO DAILY
Discontinued
atorvastatin 20 mg Tablet
20 mg PO HS
Discharge Orders:
Discharge Patient (As Directed); Ordered 02/15/25
Ordered By: Samantha Ocampo
Discharge Date and Time
Discharge Date/Time: 02/15/25 17:02
Print Language: SWAZI
--- NOTE | 2025-02-15 16:14 | CM ---
entered order for discharge.
Spoke with pt . He agrees with dc today .
Pt will drive him self home today.
He will notify his family of dc.
Pt is under WARNER.
Declined VN at dc.
PLAN Home no needs
== END 2025-02-15 17:02 | disposition home or self-care (01) ==
LOC: 4 EAST ACU 18:09
PROVIDERS: Registered Nurse; ADMITTING PHYSICIAN Internal Medicine; ATTENDING PHYSICIAN Internal Medicine; CONSULT PHYSICIAN Psychiatry & Neurology Neurology; EMERGENCY PHYSICIAN Emergency Medicine; FAMILY PHYSICIAN Family Medicine
DX: M54.2 Cervicalgia (principal); I95.1 Orthostatic hypotension; Z79.01 Long term (current) use of anticoagulants; E78.00 Pure hypercholesterolemia, unspecified; I48.0 Paroxysmal atrial fibrillation; M19.90 Unspecified osteoarthritis, unspecified site
CPT/HCPCS: 70450; 70496; 70498; 70551; 80053; 80061; 82607; 82746; 83036; 84443; 84484; 85025; 85610; 85652; 85730; 93005; 97166; 99285; G0378; Q9967

== ENCOUNTER → 2025-02-19 11:32 | Outpatient (REF) | payer MEDICARE, SELFPAY ==
[2025-02-19 12:22] LABS: Hematocrit 40.4 % (39.0-52.0); Hemoglobin 13.3 g/dL (13.0-18.0); Mean Corp Hgb Conc. 32.9 g/dL (33.0-37.0); Mean Corpuscular Volume 96.0 fL (80.0-94.0); Platelet Count 160 10^3/uL (130-400); Red Cell Dist. Width 13.5 % (11.5-14.5)
[2025-02-19 12:44] LABS: Blood Urea Nitrogen 15 mg/dl (9-20); Calcium 8.6 mg/dl (8.4-10.2); Carbon Dioxide 30 mmol/L (22-30); Chloride 104 mmol/L (98-107); Glucose 114 mg/dl (70-99); Potassium 4.0 mmol/L (3.5-5.1); Sodium 140 mmol/L (135-145); eGFR > 60.00
[2025-02-19 12:46] LABS: Absolute Neutrophils -Man Diff 2.7 10^3/uL (1.4-6.5); Normal RBC Morphology Yes; Platelets Checked Yes; Total Cells Counted 100
[2025-02-19 13:14] LABS: TSH 1.51 uIU/ml (0.47-4.68)
== END ==
LOC: REG 11:32
PROVIDERS: ATTENDING PHYSICIAN Physician Assistant
DX: R42 Dizziness and giddiness (principal)
CPT/HCPCS: 36415; 80048; 84443; 85025

== ENCOUNTER 2025-02-21 20:56 | Emergency (ER) | payer MEDICARE, SELFPAY ==
[2025-02-21 21:01] VITALS: BP 175/95
[2025-02-21 21:46] VITALS: BP 170/85
[2025-02-21 22:02] VITALS: BMI 22.8
[2025-02-21 22:22] LABS: Hematocrit 41.0 % (39.0-52.0); Hemoglobin 13.8 g/dL (13.0-18.0); Mean Corp Hgb Conc. 33.7 g/dL (33.0-37.0); Mean Corpuscular Volume 94.3 fL (80.0-94.0); Platelet Count 163 10^3/uL (130-400); Red Cell Dist. Width 13.2 % (11.5-14.5)
[2025-02-21 22:31] LABS: ALT (SGPT) 25 U/L (0-50); AST (SGOT) 25 U/L (17-59); Albumin 4.0 g/dl (3.5-5.0); Alkaline Phosphatase 55 U/L (38-126); Blood Urea Nitrogen 18 mg/dl (9-20); Calcium 8.7 mg/dl (8.4-10.2); Carbon Dioxide 31 mmol/L (22-30); Chloride 105 mmol/L (98-107); Estimated Creatinine Clearance 72 ml/min; Glucose 95 mg/dl (70-99); Potassium 3.9 mmol/L (3.5-5.1); Sodium 141 mmol/L (135-145); Total Protein 6.5 g/dl (6.3-8.2); eGFR > 60.00
[2025-02-21 22:55] LABS: Absolute Neutrophils -Man Diff 1.7 10^3/uL (1.4-6.5)
[2025-02-21 22:56] LABS: Normal RBC Morphology Yes; Platelets Checked Yes; Total Cells Counted 100
[2025-02-21 23:00] VITALS: BP 135/75
[2025-02-22] VITALS (7 sets, daily range): BP systolic 138–160; BP diastolic 74–82; PULSE 61–63
--- NOTE | 2025-02-22 02:18 | ED.GENMED ---
History of Present Illness
General
Chief Complaint: Blood Pressure Problem
Source: patient
Exam Limitations: none
Time Seen by Provider: 02/21/25 23:08
Nursing documentation reviewed up to this point in time: agreed with
History of Present Illness
History of Present Illness:
89-year-old male presenting to the emergency department today with concerns of dizziness that was ongoing for roughly an hour and that started around 5 PM today which was a few hours prior to arrival. Did check his blood pressure which was 166/100
at home denies any chest pain shortness of breath or headache. Had similar symptoms a week ago when he was admitted to the hospital here had a CT angiogram of the head and neck as well as an MRI with no acute findings. At the time was deemed to be
a peripheral vertigo and he vies for outpatient follow-up. They also thought he may have had orthostatic hypotension as well. He currently is asymptomatic during my assessment here. Denies any numbness weakness chest pain or shortness of breath.
Past History
Past History
ED Past Medical History: Arrthythmia and Hypercholesterolemia
ED Past Surgical History: Orthopedic and Other (hernia repair)
Social History
Tobacco: Non-smoker
Alcohol: Occasional
Drug: None
Personal: Single
Living: with family
Employment: Retired
Family History
Family History: Other (Mother with aortic valve replacement)
Review of Systems
Review of Systems
Allergies reviewed?: Yes
All Other Systems: ROS reviewed and negative except as documented in HPI and ROS
Phy Exam
Physical Exam
Physical Exam:
GENERAL: Alert , in no apparent distress
EYE: pupils equal and reactive
NECK: Supple, no significant adenopathy.
ENT: o/p clr, mmm.
CARDIAC: Regular rate and rhythm .
LUNGS: Clear breath sounds bilaterally, no acute respiratory distress, no wheezes/rales/rhonchi
ABDOMEN: Soft, without focal tenderness, no r/g, no cvat
NEUROLOGICAL: Alert and oriented, no focal neuro deficits 5 out of 5 upper and lower extremity strength normal sensation with palpating bilaterally normal finger-nose and [id number] no pronator drift.
SKIN: Warm and dry, skin intact.
MUSCULOSKELETAL: No edema, well perfused.
PSYCH: Normal and appropriate interaction.
Course
Orders/Labs/Results
Orders:
Orders
02/21/25 21:49
Electrocardiogram (*1) Urgent
Reason for Study: Hypertension, Benign
EKG- Treatment ONCE
02/21/25 22:00
Complete Blood Count/With Diff Urgent
Comprehensive Metabolic Panel Urgent
Manual Differential Urgent
02/22/25 00:09
Orthostatic VS- Treatment ONCE
02/22/25 01:50
CT Head W/o Iv Contrast Urgent
Comment:
Reason For Exam: left DUDLEY, dizziness
Abnormal Lab Results
02/21/25
22:00
WBC 4.1 L 10^3/uL
(4.8-10.8)
RBC 4.35 L 10^6/uL
(4.70-6.10)
MCV 94.3 H fL
(80.0-94.0)
MCH 31.7 H pg
(27.0-31.0)
Monocytes (Manual) 11 H %
(2-9)
Carbon Dioxide 31 H mmol/L
(22-30)
02/21/25 22:00
02/21/25 22:00
Vital Signs
Initial and Last Documented VS:
Initial Vital Signs
Temp Pulse Resp BP Pulse Ox
98.1 F 69 20 175/95 99
02/21/25 21:01 02/21/25 21:01 02/21/25 21:01 02/21/25 21:01 02/21/25 21:01
Last Documented Vital Signs
Temp Pulse Resp BP Pulse Ox
98.1 F 56 18 138/74 98
02/21/25 21:01 02/22/25 03:15 02/22/25 03:15 02/22/25 03:00 02/22/25 03:15
MDM/Problems Addressed
MDM/Problems Addressed:
89-year-old male presenting with concerns of sensation dizziness and room spinning. Lasted for roughly an hour prior to arrival. Now resolved. Blood pressure elevated on arrival but improved to normal range prior to my assessment. Labs are
unremarkable and EKG normal. Patient did have a workup including a CT angiogram of the head neck and MRI 1 week ago which were normal. Patient asymptomatic for at least 5 hours while here in the ER. CT scan here obtained today which were no
changes which was normal. Very low likelihood of any emergent process at this time advised for close outpatient follow-up. Return precautions given.
*Pulse Oximetry
SaO2: 98
Oxygen Mode of Delivery: Room air
Patient hypoxic: no (98)
*Critical Care Note
Total Time (30-74mins, 75-104mins- exclusive of procedures): Not Applicable
ED Attending Note
-
Portions of this chart may have been created with voice recognition software.� Occasional wrong word or��sound alike� substitutions may have occurred due to the inherent limitations of voice recognition software.
Discharge Plan
Departure
Patient Disposition: Home (Routine Discharge)
Date of Disposition: 02/22/25
Time of Disposition: 03:22
Patient with high blood pressure during this ER visit?: No
Condition: Good
Covid-19: Not Applicable
Discharge Problem:
Dizziness
Instructions: Dizziness in adults - ED discharge instructions
Prescriptions:
No Action
acetaminophen [Tylenol Extra Strength] 500 mg Tablet
1,000 mg PO DAILYPRN PRN (Reason: mild pain)
metoprolol succinate 25 mg Tablet Extended Release 24 Hr
25 mg PO DAILY
Eliquis 5 mg Tablet
5 mg PO BID
PreserVision AREDS-2 250-90-40-1 mg Capsule
1 cap PO BID
CoQ-10 capsule
50 mg PO DAILY
Fish Oil
1 cap PO DAILY
Metamucil
1 tsp PO QPM
Patient Comments:
02/13/2025, 1 heaping teaspoon per pt.
zinc
1 tab PO DAILY
Analgesic [place] (m.salic-menth) 15-10 % Cream
1 applic topical QID PRN (Reason: muscle pain) Qty: 85 0RF
atorvastatin 40 mg Tablet
40 mg PO QPM Qty: 30 0RF
Referrals:
Te Najera PA [Family Provider, Family Practice]
Activity Restrictions/Additional Instructions:
You came to the emergency department today after an episode of dizziness. Here you had a reassuring assessment. Please follow closely with your ear flap binder and ENT doctor. Return for any worsening, new or concerning symptoms.
Interventions
Interventions:
*Risk Screen - Suicide Last Done: 02/21/25 21:03
*General Assessment Last Done: 02/21/25 21:03
*Neglect/Abuse Screening Last Done: 02/22/25 01:49
*ED- Fall Risk Assessment Last Done: 02/21/25 22:04
*ED COVID-19 Vaccine History Last Done: 02/21/25 21:03
*Nursing Disposition Last Done: 02/22/25 03:28
ED- Cardiac Assessment Last Done: 02/21/25 22:04
ED- Neurological Assessment Last Done: 02/21/25 22:04
ED- Pulmonary Assessment Last Done: 02/21/25 22:04
Discharge Date and Time
Discharge Date/Time: 02/22/25 03:41
Print Language: [place]
== END 2025-02-22 03:41 | disposition home or self-care (01) ==
LOC: EMR 20:56
PROVIDERS: Emergency Medicine; EMERGENCY PHYSICIAN Student in an Organized Health Care Education/Training Program; FAMILY PHYSICIAN Physician Assistant
DX: R42 Dizziness and giddiness (principal); E78.00 Pure hypercholesterolemia, unspecified
CPT/HCPCS: 99284; 70450; 80053; 85025; 93005

== ENCOUNTER → 2025-03-04 09:36 | Outpatient (REF) | payer MEDICARE, SELFPAY | LOC: RAD 09:36 | PROVIDERS: ATTENDING PHYSICIAN Internal Medicine; FAMILY PHYSICIAN Family Medicine | DX: M54.2 Cervicalgia (principal); R42 Dizziness and giddiness; I67.89 Other cerebrovascular disease | CPT/HCPCS: 93880 ==